=== PATIENT | female | born 1960 | race African-American/Black ===

== ENCOUNTER 2020-08-27 14:32 | Emergency (ER) | payer MEDICARE, MEDICAID ==
[~2020-08-27] VITALS: Ht 160 cm; Wt 181.0 kg
[2020-08-27 18:00] VITALS: BP 190/68
== END 2020-08-27 18:53 | disposition home or self-care (01) ==
LOC: ER 15:02
DX: R09.89 Other specified symptoms and signs involving the circulatory and respiratory systems (principal); E11.9 Type 2 diabetes mellitus without complications; I10 Essential (primary) hypertension; E03.9 Hypothyroidism, unspecified; M10.9 Gout, unspecified
CPT/HCPCS: 70360; 93005; 99283